=== PATIENT | male | born 1960 | race Two or more races ===

== ENCOUNTER 2019-02-03 05:43 | Day surgery (SDC) | payer OTHER ==
--- NOTE | 2019-02-02 10:08 | NUR ---
0940-ADMITED VIA [employer],HERNESTO #[id number],
--- NOTE | 2019-02-02 18:33 | Pre-Procedure Note/Attestation ---
Pre-Procedure Note/Attestation Complete Prior to Procedure Planned Procedure: not applicable Procedure Narrative: 1. ORIF nasa fracture 2. Septoplasty 3. SMR inf right turbinate 4. SMR inf left turbinate Indications for Procedure Pre-Operative Diagnosis: Nasal deformity Nasal septal deviation Hypertrophied bilateral inferior turbinates. Attestation I attest that I discussed the nature of the procedure; its benefits; risks and complications; and alternatives (and the risks and benefits of such alternatives ), prior to the procedure, with the patient (or the patient's legal human resources representative). I attest that, if there was a reasonable possibility of needing a blood transfusion, the patient (or the patient's legal human resources representative) was given the [facility] standardized written summary, pursuant to the Marito Tania Blood Safety Act ([place] Health and Safety Code # 1645, as amended). I attest that I re-evaluated the patient just prior to the surgery and that there has been no change in the patient's H&P as attached by PMD which I have reviewed and will cosign. Alejandro Guevara MD February 02, 2019 18:33
--- NOTE | 2019-02-02 18:34 | Brief Operative Note ---
Immediate Post Operative Note Operative Note Chief Complaint: Nasal deformity, nasal septal deviation, noasal airway obstruction. Pre-op Diagnosis: Nasal deformity Nasal septal deviation Hypertrophied bilateral inferior turbinates. Procedure: 1. ORIF nasa fracture 2. Septoplasty 3. SMR inf right turbinate 4. SMR inf left turbinate Post-op Diagnosis: same as pre-op Surgeon: Alejandro Guevara Land Conservation Specialist: none Additional Surgeons: none Anesthesiologist: Ezequiel Anesthesia: general Specimen: none Complications: none Condition: stable Fluids: D5LR Estimated Blood Loss: volume - 25 cc Drains: none Packing: Stamberger nasal gel Implant(s) used?: No Alejandro Guevara MD February 02, 2019 18:34
--- NOTE | 2019-02-02 18:37 | Discharge Instructions ---
Discharge Instructions Discharge Instructions Follow up with: 02/10/19 11 AM Diet: regular Resume Normal Activity?: No Activity: light activity Pneumonia Vaccine: pt refused vaccine Influenza Vaccine (Jun to Nov): pt refused vaccine Return to Work/School on: Feb 17, 2019 For Surgical Patients Dressing Care: may change May shower: No For Congestive Heart Failure Reminder Report to your physician any weight gain of 5 pounds or more in one week. Alejandro Guevara MD February 02, 2019 18:36
[~2019-02-03] VITALS: Ht 165.1 cm; Wt 95.3 kg
[2019-02-03] VITALS (9 sets, daily range): BP systolic 151–177; BP diastolic 83–101
[~2019-02-03 05:43] MED LIST: AMOXICILLIN500 M1 PO; ATORVASTATIN CA40 MG ORAL; LISINOPRIL10 MG ORAL; METFORMIN HCL1000 M1 ORAL
[2019-02-03] MEDS ORDERED: Cocaine HCl 4% 4ml vial TOPIC ONE (06:58)
[2019-02-03] MEDS ORDERED: Lidocaine 1% 10mg/ml/Epi 0.005mg/ml 30ml vial INJ ONE (06:58)
[2019-02-03] MEDS ORDERED: Bupivacaine w/Epi 0.5% 30ml Vial INJ ONE (06:58)
[2019-02-03] MEDS ORDERED: Dexamethasone 4mg/ml vial IVP ONE (07:00)
--- NOTE | 2019-02-03 07:22 | Anethesia Preoperative Eval ---
Anesthesia Pre-op PMH/ROS General Date of Evaluation: February 03, 2019 Anesthesiologist: Ezequiel ASA Score: ASA 2 Mallampati Score Class I : Soft palate, uvula, fauces, pillars visible Class II: Soft palate, uvula, fauces visible Class III: Soft palate, base of uvula visible Class IV: Only hard plate visible Mallampati Classification: Class III Surgeon: Ismael Diagnosis: Nasal fracture Surgical Procedure: Nasal ORIF, septoplasty SMR TURBS Anesthesia History: none Family History: no anesthesia problems Allergies: Coded Allergies: No Known Allergies (Unverified , 02/02/19) Medications: see eMAR Patient NPO?: Yes NPO Date: February 02, 2019 NPO Time: 22:00 Past Medical History Cardiovascular: Reports: HTN, other - HLD; Denies: CAD, CA, valve dz, arrhythmia Pulmonary: Denies: asthma, COPD, KRISTIAN, other Gastrointestinal/Genitourinary: Denies: GERD, CRI, ESRD, other Neurologic/Psychiatric: Denies: dementia, CVA, depression/anxiety, TIA, other Endocrine: Reports: DM; Denies: hypothyroidism, steroids, other HEENT: Denies: cataract (L), cataract (R), glaucoma, MENTASTA (L), MENTASTA (R), other Hematology/Immune: Denies: anemia, DVT, bleeding disorder, other Musculoskeletal/Integumentary: Reports: OA; Denies: RA, DJD, DDD, edema, other Other: obesity PSxH Narrative: Right middle finger sx Anesthesia Pre-op Phys. Exam Physician Exam Last Vital Signs Date Time Temp Pulse Resp B/P (MAP) Pulse Ox O2 Delivery O2 Flow Rate FiO2 02/03/19 06:18 Room Air 02/03/19 06:14 97.8 75 18 157/83 96 Constitutional: NAD Cardiovascular: RRR Respiratory: CTA Airway Exam Mallampati Score: Class III MO: full ROM: full Teeth: missing, intact, broken Anesthesia Pre-op A/P Labs see chart Studies Pre-op Studies: EKG - sr Risk Assessment & Plan Assessment: ASA II Plan: GA Status Change Before Surgery: No Pre-Antibiotics Drug: Ancef 2g Given Within 1 Hr of Incision: Yes Charleen James MD February 03, 2019 07:22
[2019-02-03] MEDS ORDERED: LR 1000ml ONE (07:30)
[2019-02-03] MEDS ORDERED: Sterile Water Irrig 1000ml IRRIG ONE (07:30)
[2019-02-03] MEDS ORDERED: Zemuron 50mg/5ml Inj IV ONE (07:30)
[2019-02-03] MEDS ORDERED: Propofol 200mg/20ml IV ONE ×2 (07:31→07:51)
[2019-02-03] MEDS ORDERED: Lidocaine 1% MPF 10mg/ml 5ml ONE (07:31)
[2019-02-03] MEDS ORDERED: Midazolam 2mg/2ml Inj ONE (07:31)
[2019-02-03] MEDS ORDERED: fentaNYL 100 mcg/2 mL IV ONE (07:31)
[2019-02-03] MEDS ORDERED: NS Irrig 1000ml IRRIG ONE (07:40)
[2019-02-03] MEDS ORDERED: Dexamethasone 4mg/ml vial ONE (07:50)
[2019-02-03] MEDS ORDERED: Lidocaine 1% Plain 30 ml INJ ONE (07:51)
[2019-02-03] MEDS ORDERED: LR 1000ml 1,000 ML IVLG SCH (07:59)
[2019-02-03] MEDS ORDERED: Hydromorphone 0.5mg/0.5ml inj IVP PRN (08:00)
[2019-02-03] MEDS ORDERED: Midazolam 2mg/2ml Inj IVP PRN (08:00)
[2019-02-03] MEDS ORDERED: Metoclopramide 10mg/2ml Inj IVP PRN ×2 (08:00→08:45)
[2019-02-03] MEDS ORDERED: fentaNYL 100 mcg/2 mL IV PRN (08:00)
[2019-02-03] MEDS ORDERED: LORazepam Inj 2mg/ml 1ml IV PRN (08:00)
[2019-02-03] MEDS ORDERED: DiphenhydrAMINE 50mg/ml Inj IVP PRN (08:00)
--- NOTE | 2019-02-03 08:32 | 48 Hour Post Anesthesia Eval ---
Post Anesthesia Evaluation Procedure: Nasal ORIF, septoplasty SMR TURBS Date of Evaluation: February 03, 2019 Airway: patent Nausea: No Vomiting: No Pain Intensity: 0 Hydration Status: adequate Cardiopulmonary Status: at baseline Mental Status/LOC: patient returned to baseline Post-Anesthesia Complications: 0 Follow-up care needed: ready to discharge Charleen James MD February 03, 2019 08:32
--- NOTE | 2019-02-03 08:32 | Immediate Post-Op Evaluation ---
Immediate Post-Op Evalulation Immediate Post-Op Evalulation Procedure: Nasal ORIF, septoplasty SMR TURBS Date of Evaluation: February 03, 2019 Time of Evaluation: 08:34 IV Fluids: 600 Blood Products: 0 Estimated Blood Loss: 25 Urinary Output: 0 Blood Pressure Systolic: 151 Blood Pressure Diastolic: 84 Pulse Rate: 93 Respiratory Rate: 17 O2 Sat by Pulse Oximetry: 98 Temperature (Fahrenheit): 98.4 Pain Score (1-10): 0 Nausea: No Vomiting: No Complications 0 Patient Status: awake, reacts, patent, none Hydration Status: adequate Drug: Ancef 2g Given Within 1 Hr of Incision: Yes Charleen James MD February 03, 2019 08:32
[2019-02-03] MEDS ORDERED: HYDROmorphone 1mg/ml Carpuject SUBQ PRN (08:45)
[2019-02-03] MEDS ORDERED: HYDROcodone/Acetamin 5/325 tab ORAL PRN (08:45)
[2019-02-03] MEDS ORDERED: ceFAZolin sod 1 GM in D5W 55 ML IV ONE (09:00)
--- NOTE | 2019-02-03 16:30 | Operative Note - Dictated ---
DATE OF OPERATION: 02/03/2019 SURGEON: Alejandro Guevara M.D. LOCAL TRUCK DRIVER: None. ANESTHESIOLOGIST: Dr. Nieves. ANESTHESIA: General LMA with 15 mL of 50:50 mixture of 1% lidocaine with 1:100,000 epinephrine and bupivacaine 0.5% with 1:200,000 epinephrine. Additionally 4 mL of 4% cocaine were placed on two nasal pledgets for either nostril for a total of four, which were accounted for at the end of the case. INDICATION FOR SURGERY: Nasal fracture resulting in deformity of the nose and septal deviation as well as hypertrophied right and left inferior turbinates. PREOPERATIVE DIAGNOSIS: Nasal fracture resulting in deformity of the nose and septal deviation as well as hypertrophied right and left inferior turbinates. POSTOPERATIVE DIAGNOSIS: Nasal fracture resulting in deformity of the nose and septal deviation as well as hypertrophied right and left inferior turbinates. FINDINGS: There was an adhesion to the left side of the nose, blocking the nares completely as well as the vomer had been pushed over as well. Nose is also flat on top from the fracture. PROCEDURE: 1. Open reduction and internal fixation, nasal fracture. 2. Septoplasty. 3. Submucous resection, right inferior turbinate. 4. Submucous resection, left inferior turbinate. TECHNIQUE: The patient was prepped in usual manner. A time-out was performed. We all agreed as the equipment and procedures to be done. I then proceeded to inject with the aforementioned lidocaine, Marcaine, and epinephrine mixture. First regional blocks in V1 and V2 and then inside the nose, the turbinate, septum, and anterior and lateral nose. Two nasal pledgets with 4% cocaine were placed on either nostril. I addressed the adhesion on the left side of the nose, left naris first. I cut it with the scissors. I then made a [place] incision inferiorly on the left septum over the vomer. I then was able to elevate the perichondrium and periosteum and then using a straight guarded osteotome, I removed the vomer on this side. I then proceeded to sew the [place] incision closed with a 4-0 plain suture. The incision was made in a left inferior turbinate with 15 blade. Radiofrequency wand, setting of 6 coated with saline gel passed twice submucosally in the setting of 6. I then outfractured with a Boies elevator. I then turned my attention to the right inferior turbinate. I made an incision with a 15 blade and then passed the radiofrequency wand after coating with saline gel setting of 6 x 10 seconds twice submucosally in the inferior turbinate. I then outfractured with a Boies elevator. At the end of this outfracture, I was able to turn the Boies elevator 360 degrees without blockage or obstruction on both the right and left side. I then made between the cartilage incisions with a 15 blade and elevated over the nose with . I then used a straight guarded osteotome to make medial osteotomies and low lateral osteotomies. I then used a Boies elevator to make sure there was complete fracture as well as an . Skin was protected in both cases. I then proceeded to use a large angled scissors to remove some of the scar tissue over the anterior part of the mid nose. I then used a rasp to smooth this out. Nasal pledgets all four were accounted for after being removed. I then suctioned the nose clean and placed one syringe of Stammberger nasal gel between the two nares. I then placed a skin prep, tape, and stent on the outside of the nose without difficulty to make sure to protect the eyes. Sponge and needle count was correct. ESTIMATED BLOOD LOSS: 25 mL. COUNTS: None. DRAINS: None. The patient was awake and alert, and stable in the operating room prior to transfer to the recovery room where I also saw him and he was stable as well. Alejandro Guevara M.D. : SHAHIDA JOB#: [id number] CC:
== END 2019-02-03 10:10 | disposition home or self-care (01) ==
LOC: SUR 05:43
DX: S02.2XXA Fracture of nasal bones, initial encounter for closed fracture (principal); J34.2 Deviated nasal septum; J34.3 Hypertrophy of nasal turbinates; M95.0 Acquired deformity of nose; I10 Essential (primary) hypertension; E11.9 Type 2 diabetes mellitus without complications; E78.5 Hyperlipidemia, unspecified; Z83.3 Family history of diabetes mellitus; Z80.3 Family history of malignant neoplasm of breast; Z82.49 Family history of ischemic heart disease and other diseases of the circulatory system; Z79.899 Other long term (current) drug therapy; Z79.84 Long term (current) use of oral hypoglycemic drugs; Z87.891 Personal history of nicotine dependence; M19.90 Unspecified osteoarthritis, unspecified site; E66.9 Obesity, unspecified; Z68.34 Body mass index [BMI] 34.0-34.9, adult; X58.XXXA Exposure to other specified factors, initial encounter; Y92.9 Unspecified place or not applicable
CPT/HCPCS: 21330; 30140; 30520; 82962; J0360; J0690; J1100; J2001; J2250; J2405; J2704; J3010; 94003; 94150